=== PATIENT | female | born 1940 | race Caucasian/White ===

== ENCOUNTER 2016-11-26 05:05 | Emergency (ER) | payer MEDICARE, BC ==
--- NOTE | 2016-11-29 19:04 | ER ---
ADMIT: 11/26/2016 RM/LOC: ER [facility] [place] MR#: [id number] [address] [id number] CHRIS DEVRIES [address] [place] [address] Emergency Room Report SEX: F AGE: 76 : 1940 DATE: 11/26/2016 HISTORY OF PRESENT ILLNESS: The patient is a 76-year-old female with past medical history of primary biliary cirrhosis, came to the ER with chief complaint of feeling chills and some headaches and congestion in the nose for the last few days. The patient denies any chest pain, shortness of breath, abdominal pain, or urinary symptoms. PHYSICAL EXAMINATION: HEAD AND NECK: Positive for erythematous oropharynx without any exudates, the patient had no lymphadenopathy in the anterior or posterior chains. Trachea is midline. LUNGS: Clear. HEART: Normal cardiac sounds without murmurs or gallops. ABDOMEN: Soft. No CVA tenderness or rebound. EXTREMITIES: Did not show any swelling or tenderness. The patient was negative for influenza A and B antigen, and urine was positive for 37 WBC and 3 RBC. With the diagnoses of UTI and URI, the patient was discharged to home. Return precautions, prescription for levofloxacin, and follow up with the primary doctor in a week. Karl Hart MD/ babar JOB #: [id number] CC: Karl Hart MD, Attending Physician Donnie Cid MD, Family Physician
== END 2016-11-26 06:38 | disposition home or self-care (01) ==
LOC: ER 05:05
DX: J06.9 Acute upper respiratory infection, unspecified (principal); N39.0 Urinary tract infection, site not specified; Z90.710 Acquired absence of both cervix and uterus; Z88.0 Allergy status to penicillin; Z88.2 Allergy status to sulfonamides; Z79.01 Long term (current) use of anticoagulants